=== PATIENT | male | born 1965 | race African-American/Black ===

== ENCOUNTER → 2018-02-25 | Day surgery (SDC) | payer BC ==
[2018-02-24 10:35] LABS: BASOPHILS # (AUTO) 0.1 (0.0-0.1); BASOPHILS % 0.9 % (0.0-1.0); EOSINOPHILS # (AUTO) 0.2 (0.0-0.4); EOSINOPHILS % 3.2 % (0.0-6.0); HEMATOCRIT 47.8 % (38.2-49.6); HEMOGLOBIN 15.4 g/dL (14.0-18.0); LYMPHOCYTES # (AUTO) 1.9 (1.0-3.2); LYMPHOCYTES % 25.3 % (18.0-39.1); MEAN CORPUSCULAR HGB CONC 32.2 g/dL (31-35); MEAN CORPUSCULAR VOLUME 74.5 fL (81-99); MONOCYTES # (AUTO) 0.7 (0.2-0.8); NEUTROPHILS # (AUTO) 4.5 (2.1-6.9); NEUTROPHILS % 60.8 % (38.7-80.0); PLATELET COUNT 291 x10e3/uL (140-360); RED BLOOD COUNT 6.42 x10e6/uL (4.3-5.7); RED CELL DISTRIBUTION WIDTH 17.6 % (11.7-14.4)
[2018-02-24 10:50] LABS: INR 1.15; PROTHROMBIN TIME 13.8 seconds (11.9-14.5)
[2018-02-24 10:51] LABS: PARTIAL THROMBOPLASTIN TIME 31.2 seconds (23.8-35.5)
[2018-02-24 11:00] LABS: ALANINE AMINOTRANSFERASE 45 IU/L (0-55); ALBUMIN/GLOBULIN RATIO 1.2 (0.8-2.0); ALKALINE PHOSPHATASE 114 IU/L (40-150); ANION GAP 14.7 mmol/L (8-16); BLOOD UREA NITROGEN 9 mg/dL (7-26); BUN/CREATININE RATIO 12 (6-25); CALCIUM 9.3 mg/dL (8.4-10.2); CARBON DIOXIDE 24 mmol/L (22-29); CHLORIDE 103 mmol/L (98-107); CREATININE, SERUM 0.77 mg/dL (0.72-1.25); EST GLOMERULAR FILTRATION RATE > 60 ML/MIN (60-); GLUCOSE 102 mg/dL (74-118); POTASSIUM 3.7 mmol/L (3.5-5.1); SODIUM 138 mmol/L (136-145)
--- NOTE | 2018-02-24 11:47 | Diagnostic Imaging Report ---
EXAMINATION: CHEST 2 VIEWS INDICATION: Pre-admit COMPARISON: None FINDINGS: TUBES and LINES: None. LUNGS: Lungs are well inflated. There is no evidence of pneumonia or pulmonary edema. Linear subsegmental atelectasis at the left lung base. PLEURA: No pleural effusion or pneumothorax. HEART AND MEDIASTINUM: The cardiomediastinal silhouette is unremarkable. BONES AND SOFT TISSUES: No acute osseous lesion. Soft tissues are unremarkable. UPPER ABDOMEN: No free air under the diaphragm. IMPRESSION: No acute intrathoracic abnormality. Signed by: Dr. Uday Rascon MD on 02/24/2018 11:44 AM
[~2018-02-25] MED LIST: AMLODIPINE BESY10 MG PO; BUPIVACAINE 0.25% 30ML SDV INJ ONE; CEFOXITIN SOD 1 GM VIAL ONE; FENTANYL CITRATE/PF 100MCG/2 ML INJ ONE; JANUVIA100 MG PO; JARDIANCE PO; KEFLEX500 MG PO; KETAMINE HCL INJ 50 MG/ML 10 ML VIAL ONE; LIDOCAINE HCL 1% LOCAL INJ 20 ML VIAL ONE; METFORMIN HCL500 M2 PO; MIDAZOLAM HCL 2 MG/2 ML VIAL ONE; NEOSTIGMINE 1 MG/ML 10ML VIAL ONE; SIMVASTATIN20 MG PO; TYLENOL WITH C1 EACH PO; VICTOZA 3-0.6 MG/0.1 SC
[2018-02-25 13:15] VITALS: BP 140/91
--- NOTE | 2018-02-25 18:29 | Operative Report ---
DATE OF PROCEDURE: February 25, 2018 PREOPERATIVE DIAGNOSIS: Candidal balanitis. POSTOPERATIVE DIAGNOSIS: Candidal balanitis. OPERATION PERFORMED: Circumcision. ANESTHESIA: General. INDICATIONS: This patient is a 52-year-old black male who is a diabetic and he has had recurrent episodes of candidal balanitis. For further details, please refer to the history and physical. The procedure was done in the following fashion. DESCRIPTION OF PROCEDURE: The patient was taken to the operating room, placed under general anesthesia, dressed and draped with Hibiclens in the supine position in the usual fashion. A sleeve circumcision was performed. The proximal end of the sleeve was marked with a marking pen and then a circumferential incision was then made. I then retracted the prepuce and did a frenulotomy by passing a mosquito clamp beneath the frenulum and then passing ties proximally and distally and dividing the frenulum. I then marked off the distal end of the circumcision circumferentially with a marking pen. I then completed the distal end of the incision. Once this was created, hemostats were placed proximally and distally on the sleeve and then, I passed a hemostat bluntly beneath the sleeve and divided the sleeve. I then sharply excised the sleeve away with Metzenbaum dissection. Hemostasis was maintained with the electrocautery set at 20 for coagulation and 0 for cutting. I would hot die picker on the bleeding vessels with a mosquito hemostat and then fulgurate the vessels in order to avoid injury to the urethra. The wound was irrigated with sterile water and again inspected for hemostasis. When hemostasis was seen to be good, the foreskin was closed in a 4-quadrant fashion using interrupted 3-0 chromic. I then injected the base of the penis circumferentially with 10 mL of 1% lidocaine without epinephrine. Triple-antibiotic ointment and a Vaseline gauze dressing were applied. The patient tolerated procedure well and left the operating room in good condition. Blood loss was minimal. He will go home on Keflex 500 mg 1 p.o. 4 times daily, #20 and Tylenol No. 3 one p.o. q.6 hours p.r.n. pain, #20. He will have no sex for 6 weeks. He can have a return appointment to see me again in 2 weeks. Job#: [id number]
== END | disposition home or self-care (01) ==
LOC: OR 07:41
PROVIDERS: ATTEND Urology
DX: B37.42 Candidal balanitis (principal); N40.1 Benign prostatic hyperplasia with lower urinary tract symptoms; R35.1 Nocturia; I10 Essential (primary) hypertension; E78.00 Pure hypercholesterolemia, unspecified; E11.9 Type 2 diabetes mellitus without complications; E66.9 Obesity, unspecified; K64.4 Residual hemorrhoidal skin tags; G47.33 Obstructive sleep apnea (adult) (pediatric); E78.5 Hyperlipidemia, unspecified; M06.9 Rheumatoid arthritis, unspecified; M19.90 Unspecified osteoarthritis, unspecified site; K21.9 Gastro-esophageal reflux disease without esophagitis; Z01.810 Encounter for preprocedural cardiovascular examination; Z01.812 Encounter for preprocedural laboratory examination; Z01.818 Encounter for other preprocedural examination; Z79.82 Long term (current) use of aspirin; Z79.84 Long term (current) use of oral hypoglycemic drugs; Z68.36 Body mass index [BMI] 36.0-36.9, adult; Z87.440 Personal history of urinary (tract) infections; Z86.73 Personal history of transient ischemic attack (TIA), and cerebral infarction without residual deficits
CPT/HCPCS: 36415 ×2; 54161; 71046; 80053; 82948; 85025; 85610; 85730; 88304; 93005; J0694; J2001; J2250; J2710; 88305